=== PATIENT | female | born 1985 ===

== ENCOUNTER 2017-05-13 10:17 | Emergency (ER) | payer OTHER ==
[2017-05-13 10:31] VITALS: TEMP 98; O2SAT 99; BMI 34.7
--- NOTE | 2017-05-13 11:23 | ED PDOC ---
HPI: Female Pain Time Seen by Provider: 05/13/17 11:00 Chief Complaint (Nursing): Female Genitourinary Chief Complaint (Provider): vaginal bleeding History Per: Patient History/Exam Limitations: no limitations Onset/Duration Of Symptoms: Days (x 2) Additional Complaint(s): Zayra Dai is a 31 year old female, with a previous medical history of anemia, who presents to the ED for the evaluation of vaginal bleeding and mild back pain ongoing since yesterday. Patient reports symptoms initially presented as spotting yesterday and reports passing a clot today which made her feel better. She states undergoing a routine ultrasound 2 days ago and informed everything was fine. She reports bleeding did not require the use of a pad and denies any urinary symptoms or pelvic pain. OBGYN: Dr. Dave Past Medical History Reviewed: Historical Data, Nursing Documentation, Vital Signs Vital Signs: Last Vital Signs Temp 98 F 05/13/17 10:30 Pulse 72 05/13/17 10:30 Resp BP 113/71 05/13/17 10:30 Pulse Ox 99 05/13/17 10:30 - Medical History PMH: Anemia - Surgical History Surgical History: No Surg Hx - Family History Family History: States: Diabetes - Allergies Allergies/Adverse Reactions: Allergies Allergy/AdvReac Type Severity Reaction Status Date / Time No Known Allergies Allergy Verified 05/13/17 10:44 Review of Systems ROS Statement: Except As Marked, All Systems Reviewed And Found Negative Genitourinary Female: Positive for: Vaginal Bleeding. Negative for: Dysuria, Frequency, Incontinence, Hematuria, Pelvic Pain Musculoskeletal: Positive for: Back Pain Physical Exam - Reviewed Nursing Documentation Reviewed: Yes Vital Signs Reviewed: Yes - Physical Exam Appears: Positive for: Well, Non-toxic, No Acute Distress Head Exam: Positive for: ATRAUMATIC, NORMAL INSPECTION, NORMOCEPHALIC Skin: Positive for: Normal Color, Warm, DRY Eye Exam: Positive for: EOMI, Normal appearance, PERRL ENT: Positive for: Normal ENT Inspection Neck: Positive for: Normal, Painless ROM Cardiovascular/Chest: Positive for: Regular Rate, Rhythm Respiratory: Positive for: CNT, Normal Breath Sounds Gastrointestinal/Abdominal: Positive for: Normal Exam, Bowel Sounds, Soft Pelvic Exam: Positive for: No Cerv. Motion Tender, Other (os closed. Chaperoned by Yamile COHEN). Negative for: Blood, Tender Adnexa Back: Positive for: Normal Inspection Extremity: Positive for: Normal ROM Neurologic/Psych: Positive for: Alert, Oriented - Laboratory Results Result Diagrams: 05/13/17 11:25 05/13/17 11:25 - ECG O2 Sat by Pulse Oximetry: 99 (RA) Pulse Ox Interpretation: Normal Medical Decision Making Medical Decision Making: Initial Impression: Threatened Miscarriage Initial Plan: * type and screen * Beta-HCG quantitative * urinalysis * US transvaginal * labs * reevaluation 1320 US transvaginal FINDINGS: UTERUS: Measures 9.0 x 4.5 x 5.8 cm. Normal in size and appearance. No fibroid or other mass lesion seen. ENDOMETRIUM: Gestational sac is identified within the endometrial cavity containing a yolk sac and pole with a decidual reaction appear diffusely nonfocal. No definite hemorrhage is seen related. Mean crown rump length measurement is 0.53 cm corresponding to an ultrasonic age of 6 weeks 2 days with 138 beats per minute cardiac activity identified. Myometrium is unremarkable as well as the cervix. Cervical length measures approximately 3.8 cm. CERVIX: As discussed above. RIGHT OVARY: Measures 4.3 x 3.3 x 3.7 cm. No solid mass. Normal flow. A corpus luteum cyst identified measuring 3.1 x 2 by 3.3 cm. Normal intra-ovarian arterial blood flow is been captured on spectral Doppler analysis of the right ovary. LEFT OVARY: Not visualized. No suspicious intra solid mass identified throughout the left adnexal compartment. FREE FLUID: No significant free fluid noted. OTHER FINDINGS: None. IMPRESSION: A single viable intrauterine gestation is identified with an average ultrasonic age of 6 weeks 2 days which agrees the menstrual dates of 6 weeks 6 days. No definite decidual hemorrhage is evident at this time. Right corpus luteum cyst identified. Clinical follow-up is advised. Follow-up ultrasonography is available if clinically warranted. Scribe Attestation: Documented by Francisca Fam, acting as a scribe for Cezar Mauricio DO. Provider Scribe Attestation: All medical record entries made by the Scribe were at my direction and personally dictated by me. I have reviewed the chart and agree that the record accurately reflects my personal performance of the history, physical exam, medical decision making, and the department course for this patient. I have also personally directed, reviewed, and agree with the discharge instructions and disposition. Disposition - Clinical Impression Clinical Impression: Threatened miscarriage in early - Patient ED Disposition Is Patient to be Admitted: No - Disposition Referrals: Linda Wallis MD [Family Provider] - Disposition: Routine/Home Disposition Time: 13:49 Condition: FAIR Additional Instructions: Ms. Dai thank you for letting us take care of you today. Return to the ER if your symptoms worsen, or if any problems. Make sure you take it easy (get bed rest) for the next couple of days. Follow up with your [facility] this Wednesday for a re-evaluation. Instructions: Threatened Miscarriage (ED) Forms: [employer] ([place] Citizen), [facility] ED School/Work Excuse Print Language: MALAYSIAN - POA Present On Arrival: None
[2017-05-13 11:29] LABS: BASO # 0.1 K/uL (0.0-0.2); BASO % 0.6 % (0.0-2.0); EOS % 0.2 % (0.0-4.0); HEMOGLOBIN 10.9 g/dL (12.0-16.0); LYMPH # 1.3 K/uL (1.0-4.3); LYMPH % 13.2 % (20.0-40.0); MEAN CELL VOLUME 70.8 fl (81.0-99.0); MEAN CORPUSCULAR HEMOGLOBIN 22.9 pg (27.0-31.0); MEAN CORPUSCULAR HGB CONC 32.3 g/dL (33.0-37.0); MEAN PLATELET VOLUME 8.6 fl (7.2-11.7); MONO # 0.5 K/uL (0.0-0.8); MONO % 5.1 % (0.0-10.0); NEUT # 8.1 K/uL (1.8-7.0); NEUT % 80.9 % (50.0-75.0); RBC 4.74 Mil/uL (3.80-5.20)
[2017-05-13 11:41] LABS: ALB/GLOB RATIO 1.2 (1.0-2.1); ALBUMIN 4.4 g/dL (3.5-5.0); ALT/SGPT 33 U/L (9-52); AST/SGOT 18 U/L (14-36); BLOOD UREA NITROGEN 8 mg/dl (7-17); CALCIUM 9.9 mg/dL (8.4-10.2); GFR AFRICAN-AMERICAN > 60; GFR NON-AFRICAN AMERICAN > 60
[2017-05-13 12:21] LABS: SQUAMOUS EPITHIAL 7 /hpf (0-5); URINE BACTERIA RARE (<OCC); URINE BILIRUBIN NEGATIVE (NEGATIVE); URINE BLOOD MODERATE (NEGATIVE); URINE CLARITY CLOUDY (Clear); URINE COLOR YELLOW (YELLOW); URINE GLUCOSE (UA) NEG (Normal); URINE LEUKOCYTE ESTERASE NEG Leu/uL (Negative); URINE NITRATE NEGATIVE (NEGATIVE); URINE PROTEIN NEGATIVE (NEGATIVE); URINE UROBILINOGEN 0.2-1.0 mg/dL (0.2-1.0)
--- NOTE | 2017-05-13 13:22 | US ---
HISTORY: w/ vaginal bleeding COMPARISON: None available. TECHNIQUE: Transvaginal ultrasound of the pelvis was performed for evaluation of spontaneous vaginal less bleeding in this patient. The last menstrual period is reported 03/26/2017 which suggests a to stasis of 6 weeks 6 days. FINDINGS: UTERUS: Measures 9.0 x 4.5 x 5.8 cm. Normal in size and appearance. No fibroid or other mass lesion seen. ENDOMETRIUM: Gestational sac is identified within the endometrial cavity containing a yolk sac and pole with a decidual reaction appear diffusely nonfocal. No definite hemorrhage is seen related. Mean crown rump length measurement is 0.53 cm corresponding to an ultrasonic age of 6 weeks 2 days with 138 beats per minute cardiac activity identified. Myometrium is unremarkable as well as the cervix. Cervical length measures approximately 3.8 cm. CERVIX: As discussed above. RIGHT OVARY: Measures 4.3 x 3.3 x 3.7 cm. No solid mass. Normal flow. A corpus luteum cyst identified measuring 3.1 x 2 by 3.3 cm. Normal intra-ovarian arterial blood flow is been captured on spectral Doppler analysis of the right ovary. LEFT OVARY: Not visualized. No suspicious intra solid mass identified throughout the left adnexal compartment. FREE FLUID: No significant free fluid noted. OTHER FINDINGS: None. IMPRESSION: A single viable intrauterine gestation is identified with an average ultrasonic age of 6 weeks 2 days which agrees the menstrual dates of 6 weeks 6 days. No definite decidual hemorrhage is evident at this time. Right corpus luteum cyst identified. Clinical follow-up is advised. Follow-up ultrasonography is available if clinically warranted.
[2017-05-13 14:05] VITALS: BP 112/77; PULSE 81; RESP 18
== END 2017-05-13 14:06 | disposition home or self-care (01) ==
LOC: H.ER 10:17
DX: O20.0 Threatened abortion (principal); Z3A.01 Less than 8 weeks gestation of pregnancy

== ENCOUNTER 2017-06-15 06:42 | Emergency (ER) | payer OTHER ==
[2017-06-15 06:43] VITALS: BMI 34.7
[2017-06-15] MEDS ORDERED: Sodium Chloride 0.9% 1,000 ML IV ONE (07:16)
--- NOTE | 2017-06-15 07:29 | ED PDOC ---
HPI: Female Pain Time Seen by Provider: 06/15/17 07:11 Chief Complaint (Nursing): Female Genitourinary History Per: Patient History/Exam Limitations: no limitations Onset/Duration Of Symptoms: Sudden Onset (this am) Current Symptoms Are (Timing): Still Present Severity: Moderate Quality Of Discomfort: Dull, Cramping Associated Symptoms: denies: Fever, Chills, Nausea, Vomiting, Diarrhea, Back Pain, Chest Pain, Constipation, Urinary Symptoms Alleviating Factors: None Additional History Per: Patient Additional Complaint(s): 62p0 one elective . Pt reports she is approx. 10 weeks with nml care. pt awoke with heavy vaginal bleeding approx 15 min prior to arrival. Pt states she awoke with her clothing stained with blood and she had a lot of bleeding and clots when she went to bathroom. Pt states she was seen in ED approx 1 month ago and prescribed progesterone for threatened . Pt reports she stopped mediction secondary to a yeast infection for which she took Monistat. pt states now sx are mild. only two pads used Past Medical History Reviewed: Historical Data, Nursing Documentation, Vital Signs Vital Signs: Last Vital Signs Temp 98.5 F 06/15/17 06:54 Pulse 71 06/15/17 06:54 Resp 18 06/15/17 06:54 BP 130/65 06/15/17 06:54 Pulse Ox 100 06/15/17 06:54 - Medical History PMH: Anemia - Family History Family History: States: Diabetes - Living Arrangements Living Arrangements: With Family - Social History Current smoker - smoking cessation education provided: No - Allergies Allergies/Adverse Reactions: Allergies Allergy/AdvReac Type Severity Reaction Status Date / Time No Known Allergies Allergy Verified 06/15/17 06:54 Review of Systems ROS Statement: Except As Marked, All Systems Reviewed And Found Negative Constitutional: Negative for: Fever, Chills Cardiovascular: Negative for: Chest Pain, Palpitations Respiratory: Negative for: Cough, Shortness of Breath Gastrointestinal: Negative for: Nausea, Vomiting, Abdominal Pain Genitourinary Female: Positive for: Dysuria, Pelvic Pain. Negative for: Vaginal Discharge, Vaginal Bleeding Neurological: Negative for: Weakness, Numbness Physical Exam - Reviewed Nursing Documentation Reviewed: Yes Vital Signs Reviewed: Yes - Physical Exam Appears: Positive for: Uncomfortable Head Exam: Positive for: ATRAUMATIC, NORMAL INSPECTION, NORMOCEPHALIC Skin: Positive for: Normal Color, Warm, Dry Eye Exam: Positive for: Normal appearance Neck: Positive for: Normal, Painless ROM, Supple Cardiovascular/Chest: Positive for: Regular Rate, Rhythm, Chest Non Tender. Negative for: Edema, Gallop, Murmur, Bradycardia, Tachycardia Respiratory: Positive for: Normal Breath Sounds. Negative for: Decreased Breath Sounds, Accessory Muscle Use, Crackles, Rales, Rhonchi, Stridor, Wheezing Gastrointestinal/Abdominal: Positive for: Normal Exam, Bowel Sounds, Soft. Negative for: Tenderness Pelvic Exam: Positive for: External Exam Normal, No Cerv. Motion Tender, No Masses, Active Bleeding (minimal), Other (chaperoned with female tech). Negative for: Tender W/Cervical Motion, Tender Adnexa, Tender Uterus Back: Positive for: Normal Inspection. Negative for: L CVA Tenderness, R CVA Tenderness Extremity: Positive for: Normal ROM. Negative for: Tenderness, Calf Tenderness Neurologic/Psych: Positive for: Alert, data communications technician II-XII, Oriented, Mood/Affect (calm) , Gait (steady). Negative for: Motor/Sensory Deficits, Aphasia, Facial Droop - Laboratory Results Result Diagrams: 06/15/17 07:30 06/15/17 07:30 - ECG O2 Sat by Pulse Oximetry: 100 Pulse Ox Interpretation: Normal - Progress ED Course And Treament: PROCEDURE: OB Pelvic Ultrasound HISTORY: vag bleed r/o miscarriage COMPARISON: None available. FINDINGS: UTERUS: Gestational sac: Single intrauterine gestation. Heart rate: 160 bpm. age (Ultrasound estimated): 11 weeks and 5 days Date of delivery (Ultrasound estimated) : 12/30/2017 There is a single live intrauterine gestation. Placenta is posterior and low- lying. There are 2 discrete areas of subchorionic hemorrhage measuring 2.1 x 1.2 x 0.5 cm and 2.4 x 1.5 x 0.6 cm. CERVIX: Long and closed. No cervical abnormality seen. RIGHT OVARY: Measures 3.7 x 2.9 x 3.2 cm. No mass lesion. Normal flow. There is a 2.8 x 2.3 cm cyst. LEFT OVARY: Measures 2.6 x 3.1 x 2.2 cm. No solid mass. Normal flow. FREE FLUID: None. OTHER FINDINGS: None. IMPRESSION: 1. Single live intrauterine gestation with mean gestational age of 11 weeks and 5 days. The estimated date of delivery by ultrasound is 12/30/2017. The ultrasound dates correspond with the clinical dates. 2. Low-lying posteriorly implanted placenta. Two discrete areas of subacute hemorrhage measuring 2.1 x 1.2 x 0.5 cm and 2.4 x 1.5 x 0.6 cm. advise close f/u with pmd. sx markedly improved. return if worsening pt leaves ambulatory and in good psirits. pt is a positive Re-evaluation Time: 09:40 Condition: Improved Disposition - Clinical Impression Clinical Impression: Threatened miscarriage in early - Patient ED Disposition Is Patient to be Admitted: No Counseled Patient/Family Regarding: Studies Performed, Diagnosis, Need For Followup - Disposition [facility] [Outside] (in 2 to 3 days or your doctor.) Disposition: Routine/Home Disposition Time: 09:45 Condition: GOOD Instructions: Threatened Miscarriage (ED) Forms: [employer] (Filipino)
[2017-06-15 07:48] LABS: BASO # 0.1 K/uL (0.0-0.2); BASO % 0.8 % (0.0-2.0); EOS # 0.1 K/uL (0.0-0.7); EOS % 0.8 % (0.0-4.0); HEMATOCRIT 31.8 % (34.0-47.0); LYMPH # 2.2 K/uL (1.0-4.3); LYMPH % 20.3 % (20.0-40.0); MEAN CELL VOLUME 70.7 fl (81.0-99.0); MEAN CORPUSCULAR HEMOGLOBIN 22.9 pg (27.0-31.0); MEAN CORPUSCULAR HGB CONC 32.4 g/dL (33.0-37.0); MEAN PLATELET VOLUME 8.5 fl (7.2-11.7); MONO # 0.6 K/uL (0.0-0.8); MONO % 5.7 % (0.0-10.0); NEUT # 7.7 K/uL (1.8-7.0); NEUT % 72.4 % (50.0-75.0); RED CELL DISTRIBUTION WIDTH 18.2 % (11.5-14.5); WHITE BLOOD COUNT 10.7 K/uL (4.8-10.8)
[2017-06-15 07:56] LABS: RBC URINE 68 /hpf (0-3); URINE BACTERIA RARE (<OCC); URINE BILIRUBIN NEGATIVE (NEGATIVE); URINE BLOOD MODERATE (NEGATIVE); URINE COLOR YELLOW (YELLOW); URINE GLUCOSE (UA) NEG (Normal); URINE KETONE NEGATIVE (NEGATIVE); URINE LEUKOCYTE ESTERASE NEG Leu/uL (Negative); URINE PROTEIN NEGATIVE (NEGATIVE); URINE UROBILINOGEN 0.2-1.0 mg/dL (0.2-1.0); WBC URINE 1 /hpf (0-5)
[2017-06-15 08:07] LABS: ALB/GLOB RATIO 1.2 (1.0-2.1); ALKALINE PHOSPHATASE 50 U/L (38-126); ALT/SGPT 22 U/L (9-52); AST/SGOT 25 U/L (14-36); BILIRUBIN,TOTAL 0.4 mg/dl (0.2-1.3); BLOOD UREA NITROGEN 9 mg/dl (7-17); CALCIUM 9.3 mg/dL (8.4-10.2); CARBON DIOXIDE 22 mmol/L (22-30); CHLORIDE 104 mmol/L (98-107); GFR AFRICAN-AMERICAN > 60; GLUCOSE,RANDOM 81 mg/dL (65-105); LIPASE 46 U/L (23-300); POTASSIUM 3.9 MMOL/L (3.6-5.0); SODIUM 137 mmol/l (132-148); TOTAL PROTEIN 6.9 G/DL (6.3-8.2)
--- NOTE | 2017-06-15 10:15 | US ---
PROCEDURE: OB Pelvic Ultrasound HISTORY: vag bleed r/o miscarriage COMPARISON: None available. FINDINGS: UTERUS: Gestational sac: Single intrauterine gestation. Heart rate: 160 bpm. age (Ultrasound estimated): 11 weeks and 5 days Date of delivery (Ultrasound estimated) : 12/30/2017 There is a single live intrauterine gestation. Placenta is posterior and low-lying. There are 2 discrete areas of subchorionic hemorrhage measuring 2.1 x 1.2 x 0.5 cm and 2.4 x 1.5 x 0.6 cm. CERVIX: Long and closed. No cervical abnormality seen. RIGHT OVARY: Measures 3.7 x 2.9 x 3.2 cm. No mass lesion. Normal flow. There is a 2.8 x 2.3 cm cyst. LEFT OVARY: Measures 2.6 x 3.1 x 2.2 cm. No solid mass. Normal flow. FREE FLUID: None. OTHER FINDINGS: None. IMPRESSION: 1. Single live intrauterine gestation with mean gestational age of 11 weeks and 5 days. The estimated date of delivery by ultrasound is 12/30/2017. The ultrasound dates correspond with the clinical dates. 2. Low-lying posteriorly implanted placenta. Two discrete areas of subacute hemorrhage measuring 2.1 x 1.2 x 0.5 cm and 2.4 x 1.5 x 0.6 cm.
[2017-06-15 10:43] VITALS: BP 128/78; PULSE 78; RESP 19; TEMP 97.6; O2SAT 98
== END 2017-06-15 10:43 | disposition home or self-care (01) ==
LOC: H.ER 06:42
DX: O20.0 Threatened abortion (principal); Z3A.11 11 weeks gestation of pregnancy